=== PATIENT | female | born 1975 | race Caucasian/White ===

== ENCOUNTER 2018-03-09 18:01 | Emergency (ER) | payer OTHER, SELFPAY ==
[2018-03-09 18:23] VITALS: BP 159/94; PULSE 100; RESP 16; TEMP 36.8; O2SAT 98
[2018-03-09] MEDS: Tetracaine 0.5% 4 ML BTL (19:28)
[2018-03-09] MEDS: Erythromycin Ophth Oint 3.5 GM TUBE (19:29)
[2018-03-09] MEDS: Balanced Salt Solution 15 ML BTL (19:29)
--- NOTE | 2018-03-09 19:38 | ED.GENADUL ---
Disposition Clinical Impression: Acute right eye pain Disposition: HOME Condition: Stable Instructions: Eye Pain (ED) Additional Instructions: Please use the provided eye ointment 4 times a day for the next 5 days. It is also recommended that you follow-up with [facility] include [facility] beds at the [facility] tomorrow for reassessment. Feel free to return to the emergency department immediately for any new or worsening symptoms such as significant redness, worsening pain, headache, or vision loss. Referrals: [facility] [Outside] - 1 day Medical Decision Making - Medical Decision Making Patient presenting to the emergency department for complaint of right eye pain. Patient states 2 days ago she got metal shavings into both of her eyes which she irrigated them and used moistened paper towels to get most of the debris out. The left eye improved but the right eye has continued to be irritated since. Physical exam is unremarkable and slit-lamp along with Enriquez lamp examination shows no foreign body, no fluorescein dye uptake, no conjunctival injection, normal examination of the eye. Patient's visual acuity is appropriate with glasses and only slightly decreased in the affected eye. Patient denies any drainage, vision loss, and denies any visual changes. Given the mechanism of injury and concern for occult corneal/scleral abrasion that I am not able to see so patient was placed upon erythromycin ointment to use 4 times daily for the next 5 days and instructed to follow-up with [facility] include [facility] beds at the [facility] which is her normal eye care provider in the next 24 hours for reassessment. After discussion of diagnosis and plan of care with patient patient agreed and stated no further needs, questions, or concerns at this time. History of Present Illness - General Chief complaint: EyeProblem Stated complaint: EYE PROBLEM Time Seen by Provider: 03/09/18 18:38 Source: patient, RN notes reviewed Mode of arrival: ambulatory Limitations: no limitations - History of Present Illness Initial comments: Patient reports 3 days ago she was at work and excellently got some metal shavings into her eye. She states that she irrigated them and used a wet paper towel to remove most of the areas of irritation. Patient does state that she felt that there was a large piece that was more removed from her right eye. Her left eye improved over the next couple days but she is continued to have discomfort to the right eye. Patient denies any vision loss, blurry vision, tearing, or drainage from the eye. Onset/Timin -: days(s) Location: eyes, right Severity scale (1-10): 2 Quality: aching Consistency: constant Improves with: none Worsens with: none Associated Symptoms: denies other symptoms Treatments Prior to Arrival: none - Related Data Ibuprofen 800 mg DAILY PRN 03/09/18 Allergies Allergy/AdvReac Type Severity Reaction Status Date / Time Sulfa (Sulfonamide AdvReac Intermediate Topical Unverified 03/09/18 18:35 Antibiotics) Irritation Review of Systems Constitutional: no symptoms reported Eyes: as per HPI, eye pain. denies: eye discharge, vision change Respiratory: no symptoms reported Comment: All other systems reviewed and negative Past Medical History - Past Medical History Medical history: GERD, hypertension Surgical history: non-contributory - Social History Smoking status: never smoker Alcohol use: rarely Drug use: none Living Situation: lives with family General Exam - General Limitations: no limitations General appearance: alert, in no apparent distress - Head Head exam: Present: atraumatic, normocephalic, normal inspection - Eye Eye exam: Present: normal apperance, PERRL, EOMI. Absent: scleral icterus, conjunctival injection, periorbital swelling, periorbital tenderness Pupils: Present: normal accommodation - Expanded Eye Exam No standard instances Eyelids: Normal Inspection: Bilateral Pupils: Regular, Round: Bilateral Sclera/Conjunctival: Normal Inspection: Bilateral Anterior chamber: Normal Inspection: Bilateral Visual acuity (R) = 20/: 30 Visual acuity (L) = 20/: 25 (Per RN) With correction: Yes - ENT ENT exam: Present: mucous membranes moist - Neck Neck exam: Present: full ROM - Respiratory Respiratory exam: Absent: respiratory distress - Neurological Exam Neurological exam: Present: alert, oriented X3. Absent: altered - Skin Skin exam: Present: warm, dry Course Vital Signs - 24 hr 03/09/18 18:23 Temperature 36.8 C Pulse 100 H Respiratory 16 Rate Blood Pressure 159/94 Pulse Oximetry 98
[2018-03-09 19:49] VITALS: BP 159/94; PULSE 100; RESP 16; TEMP 36.8; O2SAT 98
--- NOTE | 2018-03-10 14:07 | PDOC.ERCMPRO ---
Care Management Progress Note 03/10/18-Pt seen on 03/09/18 for acute right eye pain. Seen by Nadege Newman NP who has requested Pt to have f/u today with [facility]. AUNDREA spike with Katy at [facility] and has gotten the pt in to be seen today at 2pm.
== END 2018-03-09 19:50 | disposition home or self-care (01) ==
PROVIDERS: Emergency Provider Physician Assistant
DX: H57.11 Ocular pain, right eye (principal); T15.91XA Foreign body on external eye, part unspecified, right eye, initial encounter; Z71.1 Person with feared health complaint in whom no diagnosis is made; Y99.0 Civilian activity done for income or pay; I10 Essential (primary) hypertension
CPT/HCPCS: 99283

== ENCOUNTER → 2024-02-22 21:59 | Outpatient (CLI) | payer OTHER, SELFPAY ==
--- NOTE | 2024-02-22 18:00 | DI.RAD_ITS ---
Exam(s) XR TOE LT GREAT EXAM: XR TOE LT GREAT CLINICAL HISTORY: crush injury great toe. TECHNIQUE: 2D digital imaging was performed. Three views. COMPARISON: No exams were available for comparison FINDINGS: BONES: No acute fracture is present. No bony destructive lesion is seen. JOINTS: No dislocation present. SOFT TISSUE: Deformity at the toenail. Soft tissue swelling. No foreign body or abnormal gas collec tion. IMPRESSION: Soft tissue injury. No evidence of fracture. DATA REPOSITORY: RADIATION DOSE DELIVERED:
--- NOTE | 2024-02-22 18:55 | DI.VRAD_ITS ---
PROCEDURE INFORMATION: Exam: XR Left Toe(s) Exam date and time: 02/22/2024 6:21 PM Age: 49 years old Clinical indication: Injury or trauma; Other: Crush injury; Blunt trauma; Toes; Left TECHNIQUE: Imaging protocol: Radiologic exam of the left toes. Views: Minimum 2 views. COMPARISON: No relevant prior studies available. FINDINGS: Bones/joints: Osseous alignment is normal. No acute fracture. No significant arthritic change. . Soft tissues: There appears to be soft tissue swelling of the great toe. No radiodense foreign body. IMPRESSION: No acute osseous abnormality Dictated and Authenticated by: Ti Mcnulty MD. Ordering:PEYMAN Rios MD
== END ==
PROVIDERS: Visit Provider Physician Assistant
DX: M79.675 Pain in left toe(s) (principal); M79.89 Other specified soft tissue disorders; S97.112A Crushing injury of left great toe, initial encounter
CPT/HCPCS: 73660